=== PATIENT | female | born 2000 | race Caucasian/White ===

== ENCOUNTER 2018-10-04 15:44 | Emergency (ER) | payer OTHER ==
[~2018-10-04] VITALS: Ht 167.6 cm; Wt 73.9 kg
[2018-10-04 15:50] VITALS: BP 139/88; PULSE 85; RESP 18; Ht 167.6 cm; Wt 73.9 kg
[2018-10-04] MEDS ORDERED: DIPHENHYDRAMINE 25 MG CAP PO ONE (17:30)
[2018-10-04] MEDS ORDERED: DEXAMETHASONE 10 MG/ML 1 ML INJ IM ONE (17:30)
[2018-10-04] MEDS ORDERED: FAMO-96 PO (17:31)
[2018-10-04] MEDS ORDERED: BEN25 PO (17:32)
--- NOTE | 2018-10-04 17:39 | ERD ---
ER Documentation Chief Complaint Chief Complaint upper lip swelling X 2 hrs no other symptoms HPI Patient is a 18-year-old female who presents the ER with her mother for concerns of left upper lip swelling times 2 hours. Patient states she was sitting at her desk when she knows that her lip was itching. Patient did help her mother earlier change light bulbs not sure if she got dust in her lip which caused her to swell up. Patient denies any new foods, medications, products, creams, environmental changes. Patient denies any tongue swelling, throat closure sen sation, difficulty speaking, difficulty breathing, chest tightness or LOC. Patient denies any recent travel. Patient has no rashes. Patient denies previous history of herpes simplex. Patient denies URI like symptoms. ROS All systems reviewed and are negative except as per history of present illness. Medications Home Meds Active Scripts Diphenhydramine Hcl* (Benadryl*) 25 Mg Cap, 25 MG PO Q6, #10 CAP Prov:SHANNAN RIVERA PA-C 10/04/18 Famotidine* (Pepcid*) 20 Mg Tablet, 20 MG PO BID for 7 Days, TAB Prov:SHANNAN RIVERA PA-C 10/04/18 Allergies Allergies: Coded Allergies: No Known Allergy (Unverified , 10/04/18) FmHx Family History: No diabetes Physical Exam Vitals Vital Signs Date Temp Pulse Resp B/P (MAP) Pulse Ox O2 O2 Flow FiO2 Time Delivery Rate 10/04/18 99.2 85 18 139/88 98 15:50 (105) Physical Exam GENERAL: Well-developed, well-nourished female. Appears in no acute distress. Speaking in full sentences HEAD: Normocephalic, atraumatic. EYES: Pupils are equally reactive bilaterally. EOMs grossly intact. No conjunctival erythema. ENT: Moist mucous membranes. No uvula deviation. No kissing tonsils. Slight swelling noted to left upper lip. No tongue swelling. Oropharynx is open. No drooling. No trismus. Patient tolerating secretions well without any difficulty. NECK: Supple. No meningismus. Normal range of motion of the neck. LUNG: Clear to auscultation bilaterally. No rhonchi, wheezing, rales or coarse breath sounds. HEART: Regular rate and rhythm. No murmurs, rubs or gallops. EXTREMITIES: Equal pulses bilaterally. No peripheral clubbing, cyanosis or edema. No unilateral leg swelling. NEUROLOGIC: Alert and oriented. Moving all four extremities without any difficulty. Normal speech. Steady gait. SKIN: Normal color. Warm and dry. No rashes or lesions. Results 24 hrs Current Medications Medications Dose Sig/Danny Start Time Status Last (Trade) Ordered Route PRN Stop Time Admin Dose Reason Admin 25 mg ONCE ONCE 10/04/18 DC Diphenhydrami PO 17:30 10/04/18 ne HCl 17:31 (Benadryl) 10 mg ONCE ONCE 10/04/18 DC Dexamethasone IM 17:30 10/04/18 (Decadron) 17:31 Procedures/MDM MEDICAL DECISION MAKING: Patient is a 18-year-old female who presents the ER for concerns of left upper lip swelling times 2 hours. Vital signs were reviewed. Patient is afebrile. Patient was not hypoxic. Patient was hemodynamically stable. Patient denied any tongue swelling, throat closure sensation, difficulty breathing, chest tightness or LOC. Patient had no rashes. Low suspicion for anaphylaxis. Patient was given Decadron and Benadryl here in the ER. Patient did report itching to the affected lip thus patient likely is having a localized allergic reaction. Patient denied previous history of herpes simplex. Low suspicion for herpetic lesion. Low suspicion for deep space infection. Strict anaphylaxis return precautions are given to the patient. PRESCRIPTION: Benadryl, Pepcid DISCHARGE: At this time, patient is stable for discharge and outpatient management. I have instructed the patient to follow-up with his/her primary care physician in 1-2 days. I have discussed with the patient the possibility of needing to see a specialist for further workup and imaging studies if symptoms persist. I have instructed the patient to promptly return to the ER for any new or worsening symptoms including increased pain, fever, nausea, vomiting, weakness or LOC. The patient and/or family expressed understanding of and agreement with this plan. All questions were answered. Home care instructions were provided. Disclaimer: Inadvertent spelling and grammatical errors are likely due to EHR/dictation software use and do not reflect on the overall quality of patient care. Also, please note that the electronic time recorded on this note does not necessarily reflect the actual time of the patient encounter. Departure Diagnosis: Primary Impression: Lip swelling Condition: Stable Patient Instructions: Allergic Reaction, Other (General) Referrals: [facility] YOU HAVE RECEIVED A MEDICAL SCREENING EXAM AND THE RESULTS INDICATE THAT YOU DO NOT HAVE A CONDITION THAT REQUIRES URGENT TREATMENT IN THE EMERGENCY DEPARTMENT. FURTHER EVALUATION AND TREATMENT OF YOUR CONDITION CAN WAIT UNTIL YOU ARE SEEN IN YOUR DOCTORS OFFICE WITHIN THE NEXT 1-2 DAYS. IT IS YOUR RESPONSIBILITY TO MAKE AN APPOINTMENT FOR FOLOW-UP CARE. IF YOU HAVE A PRIMARY DOCTOR --you should call your primary doctor and schedule an appointment IF YOU DO NOT HAVE A PRIMARY DOCTOR YOU CAN CALL OUR PHYSICIAN REFERRAL HOTLINE AT IF YOU CAN NOT AFFORD TO SEE A PHYSICIAN YOU CAN CHOSE FROM THE FOLLOWING [facility] [address] [facility] [address] [facility] [facility] [address] [facility] [address] [facility] [address] [facility]. [facility] [address] [facility] [address]. [facility] YOU HAVE RECEIVED A MEDICAL SCREENING EXAM AND THE RESULTS INDICATE THAT YOU DO NOT HAVE A CONDITION THAT REQUIRES URGENT TREATMENT IN THE EMERGENCY DEPARTMENT. FURTHER EVALUATION AND TREATMENT OF YOUR CONDITION CAN WAIT UNTIL YOU ARE SEEN IN YOUR DOCTORS OFFICE WITHIN THE NEXT 1-2 DAYS. IT IS YOUR RESPONSIBILITY TO MAKE AN APPOINTMENT FOR FOLOW-UP CARE. IF YOU HAVE A PRIMARY DOCTOR --you should call your primary doctor and schedule and appointment IF YOU DO NOT HAVE A PRIMARY DOCTOR YOU CAN CALL OUR PHYSICIAN REFERRAL HOTLINE AT . IF YOU CAN NOT AFFORD TO SEE A PHYSICIAN YOU CAN CHOSE FROM THE FOLLOWING [facility]: [facility] [address] [place] [address] [facility] [address] [place] [address] [facility] [address] [place] [address] Additional Instructions: Monitor symptoms closely. Strict anaphylaxis return precautions given. if you have any new or worsening lip swelling, tongue swelling, difficulty breathing, throat tightness or loss of consciousness please return to the ER immediately. Call your primary care doctor TOMORROW for an appointment during the next 1-2 days.See the doctor sooner or return here if your condition worsens before your appointment time. SHANNAN RIVERA PA-C Oct 04, 2018 17:39
== END 2018-10-04 18:05 | disposition home or self-care (01) ==
LOC: FTE 15:44
DX: R22.0 Localized swelling, mass and lump, head (principal)
CPT/HCPCS: 96372; J1100; Z7502; Z7610